=== PATIENT | female | born 1955 | race Hispanic/Latino ===

== ENCOUNTER → 2020-05-21 | Outpatient (CLI) | payer OTHER ==
[~2020-05-21] MED LIST: FENTANYL CITRATE PF 50 MCG/1 ML 2ML VIAL ONE; LIDOCAINE HCL 1% 20 ML VIAL ONE; MIDAZOLAM HCL 1 MG/ML 2ML VIAL ONE
--- NOTE | 2020-05-21 12:51 | NUR ---
CT GD DRAINAGE CATHETER PLACEMENT PROCEDURE PERFORMED BY DR Jensen PEGUERO. PUNCTURE SITE RLQ. PATIENT TOLERATED PROCEDURE WELL. 14FR PIGTAIL CATHETER PLACED TO RLQ ABDOMINAL FLUID COLLECTION AND CONNECTED TO DRAIN BAG. CATHETER SUTURED IN PLACE AND SECURED WITH STAY-FIX DRESSING. SPECIMEN COLLECTED AND SENT TO LAB. END OF PROCEDURE AT 1100. REPORT GIVEN TO Natali ROBERTSON LVN AND PATIENT TRANSPORTED TO [facility] TRANSPORT AT 1300. AAO X3 WITH NO C/O PAIN.
== END ==
LOC: RAH 10:07
PROVIDERS: ATTEND Internal Medicine Nephrology
DX: L02.211 Cutaneous abscess of abdominal wall (principal); Z79.899 Other long term (current) drug therapy
CPT/HCPCS: 10030; 87071; 87077; 87186; 87205; C1729; C1769; J2250; J3010; 77012; 99152; 99153